=== PATIENT | female | born 1950 | race Caucasian/White ===

== ENCOUNTER → 2020-12-09 | Outpatient (CLI) | payer MEDICARE ==
[~2020-12-09] MED LIST: ABAL1.56 SQ; BONE RESTORE PO; DULO30CA44 PO; FAMO40TA4 PO; FLUT9.9S NS; IPRATROPIUM NAS; OXYC-314 PO; TELM80TA PO; omega
--- NOTE | 2020-12-09 13:14 | PDOC1 ---
INITIAL PAIN CONSULT DATE OF SERVICE: DOS: DATE: 12/09/20 TIME: 13:06 CHIEF COMPLAINT: Chief Complaint: Low back and bilateral lower extremity pain HISTORY OF PRESENT ILLNESS: 70-year-old female presents history of pain in the low back status post lumbar fusion instrumentation 2017. Patient reports her pain is getting worse now over the past 2 years or so much worse over the past 1 year patient has been taking oxycodone 4 tablets a day and reports this is not taking care of the pain very well over the past several months as well. Patient reports since the surgery she has had significant pain in the low back and radiate to the lower extremities mostly the posterior gluteus and thighs but mainly in the back itself patient rates her disability rating 0-10 10 me the worst is a 5 with him home responsibilities 7 with recreation 1 with social activity 5-6 occupation sexual behavior 0 with self-care and life support activities. Patient describes her pain is intermittent intensity but change during the day worse with walking standing changing positions and exercise any relieved by flexing forward or bending at the waist decrease in pain in her low back. Generally does not awaken her from sleep at night does not affect her bowel bladder control does affect her ability walk only for long distances greater than 30 minutes or so not use any assistive devices to ambulate. Patient not had a recent films or diagnostic studies for her lumbar spine but she is seeing her spinal surgeon tomorrow and is awaiting to see if more will be ordered. Patient is currently taking oxycodone 4 times daily, [id number] Advil, Motrin also taking Cymbalta. Patient has had physical therapy in the past and is still doing the exercises and exercises daily and despite the pain. Patient has had no recent chiropractic treatments but is currently stretching and exercise activity as noted PAST MEDICAL HISTORY: PMH: Hypertension, arthritis, gastroesophageal reflux, stage III kidney disease PREVIOUS SURGERIES: Past Surgical Hx: Spinal fusion 2018, right rotator cuff repair, tubal ligation, LASEK procedure CURRENT MEDICATIONS: Current Meds: Active Scripts Medications Dose Route/Sig Max Daily Dose Days Date Category Duloxetine Hcl 30 Mg Capsule.dr 30 Mg PO DAILY 12/09/20 Reported [ipratropium Nasal] 1 [place] ESTEBAN DAILY 12/09/20 Reported Flonase Allergy Relief (Fluticasone Propionate) 9.9 Ml [place].susp 2 Sprays NS DAILY 12/09/20 Reported Famotidine 40 Mg Tablet 40 Mg PO HS 12/09/20 Reported Tymlos (Abaloparatide) 1.56 Ml Pen.injctr 1.56 Ml SQ DAILY 12/09/20 Reported [bone restore] 1 Tab PO BID 12/09/20 Reported [omega ] 12/09/20 Reported Endocet 5-325 Tablet (Oxycodone Hcl/Acetaminophen) 1 Each Tablet 1 Tab PO QIDPRN PRN MDD 4 Tablet(s) 30 12/09/20 Reported Micardis (Telmisartan) 80 Mg Tablet 1 Tab PO DAILY 12/09/20 Reported ALLERGIES; Allergies: Coded Allergies: morphine (Verified Allergy, Intermediate, hives, 12/09/20) Sulfa (Sulfonamide Antibiotics) (Verified Adverse Reaction, Intermediate, vomiting, 12/09/20) FAMILY HISTORY: Family Hx: No major medical problems or conditions that she is aware of. SOCIAL HISTORY: Social Hx: Patient drinks about 1 glass of wine daily does not smoke not use any illegal illicit or recreational drugs patient is and lives locally in [facility] REVIEW OF SYSTEMS: ROS: Positive for those items mentioned in history of present illness, all systems are reviewed, otherwise negative ,and are complete full and well-documented on patient's chart. PHYSICAL EXAM: VS: Blood pressure is 125/78 pulse 60 respirations 16 temperature 98.2 F height is 5 feet 1 inches weight is 93 pounds PE: PHYSICAL EXAMINATION: GENERAL: The patient is awake, alert, oriented, appropriate, very pleasant demeanor HEENT: Shows normocephalic, atraumatic. Extraocular movements are intact and symmetrical. Oral cavity: Mucous membranes moist and pink. Dentition is intact. NECK: Shows anterior throat supple without palpable lymphadenopathy noted. Swallow reflex symmetrical. CHEST: Shows normal on inspection. Breath sounds are clear bilaterally, no rales rhonchi wheezes auscultated. HEART: Shows S1, S2 clear. No murmurs auscultated. ABDOMEN: Soft, nontender, nondistended, flat. No palpable organomegaly is noted. No rebound or guarding demonstrated. BACK: Shows spine grossly in the midline. Normal-appearing cervical lordotic curvature. There is slightly increased thoracic kyphosis, some minor flattening of the lumbar lordotic curvature. Well-healed extensive surgical scarring is noted in the lumbar distribution. Lumbar paraspinous muscles show symmetrical o n inspection, on palpation shows some moderate tenderness diffusely throughout the upper, middle and lower distribution of the paraspinous muscles bilaterally and also into the lower thoracic paraspinous musculature, firm and tender, but without specific trigger points, without radiation of pain. The patient has good rotational motion of the lumbar spine, both laterally as well as extension and flexion without significant difficulty. EXTREMITIES: Lower extremities show deep tendon reflexes 2+ in the patellar and tendo calcaneus tendons. Motor exam is 4 on a scale of 5 with right dorsiflexion, extension, quadriceps and hamstring flexion and 4/5 on the left. Peripheral pulses are 1+ posterior tibial. No peripheral edema is noted bilaterally. Lower extremities are warm and dry to touch, equal in color and appearance. Straight leg raise noted to be positive bilaterally approximately 35 to 40 degrees decreased with knee flexion. Gaenslen's and Kevin's maneuvers are negative bilaterally. The patient is able to stand, stand on her toes without significant difficulty or loss of balance walks with a normal- appearing gait does not appear to favor the right or left lower extremity significantly. SKIN: Shows warm and dry, good turgor. No edema. No sores, rashes or bruising throughout. IMPRESSION: Impression: 70-year-old female with long history low back pain increasing status post lumbar fusion instrumentation with radiation bilateral lower extremities in a radicular fashion, following a L5-S1 dermatomal distribution. Arthritis Hypertension Plan: Options were discussed with the patient including conservative medical management physical therapies interventional techniques. As patient is doing physical therapies and exercises on her own, as well as narcotic analgesics and anti-inflammatories, she will pursue interventional techniques. We discussed a caudal approach epidural steroid injection using descriptions as well as anatomical models to describe the procedure. Patient wait for preauthorization with her insurance provider once this is obtained will return for a caudal approach lumbar epidural steroid injection. The meantime patient will continue with stretching strength exercises daily and oral analgesics as currently. IVETH PENA MD Dec 09, 2020 13:14
== END | disposition home or self-care (01) ==
LOC: PNCL 11:30
PROVIDERS: ATTEND Anesthesiology
DX: M54.5 Low back pain (principal); M79.605 Pain in left leg; M79.604 Pain in right leg; M19.90 Unspecified osteoarthritis, unspecified site; K21.9 Gastro-esophageal reflux disease without esophagitis; I12.9 Hypertensive chronic kidney disease with stage 1 through stage 4 chronic kidney disease, or unspecified chronic kidney disease; N18.30 Chronic kidney disease, stage 3 unspecified; Z79.899 Other long term (current) drug therapy; Z98.890 Other specified postprocedural states; Z88.6 Allergy status to analgesic agent; Z88.2 Allergy status to sulfonamides
CPT/HCPCS: G0463

== ENCOUNTER → 2020-12-19 | Outpatient (CLI) | payer MEDICARE ==
[~2020-12-19] MED LIST changes: +IOHEXOL 180 MG/ML 10 ML VIAL. ONE; +methylPREDNISolone ACETATE 40 MG/ML VIAL. ONE; +methylPREDNISolone ACETATE 80 MG/ML VIAL. ONE
--- NOTE | 2020-12-19 11:30 | PDOC ---
Progress Note - Pain Clinic Date of Service: DOS: DATE: 12/19/20 TIME: 11:27 Diagnosis: Dx: Lumbar radiculopathy with lumbar degenerative disease lumbar spinal stenosis and lumbar laminectomy syndrome History or Present Illness: HPI: 70-year-old female returns for follow-up status post initial valuation preauthorization for lumbar epidural steroid injection caudal approach. Patient reports still significant pain in her low back bilateral lower extremities as previously worse on the left but present bilaterally. Patient reports no new motor or sensory deficits no new bowel or bladder incontinence still significant pain in the low back and the legs again worse on the left rated a 6 on scale 10 is worse over the past week 5 on average to its least is a 5 today patient reports is aching and sharp on and off in intensity worse with walking standing changing positions better with sitting or laying down generally does not awaken her from sleep at night most nights. Patient reports no new motor or sensory deficits no new bowel or bladder incontinence or other complaints. Physical Exam: VS: Blood pressure is 116/71 pulse 88 respirations 16 temperature 97.9 F height is 5 foot 1 his weight is 92 pounds PE: PHYSICAL EXAMINATION: GENERAL: The patient is awake, alert, oriented, appropriate, very pleasant demeanor HEENT: Shows normocephalic, atraumatic. Extraocular movements are intact and symmetrical. Oral cavity: Mucous membranes moist and pink. Dentition is intact. NECK: Shows anterior throat supple without palpable lymphadenopathy noted. Swallow reflex symmetrical. CHEST: Shows normal on inspection. Breath sounds are clear bilaterally. HEART: Shows S1, S2 clear. No murmurs auscultated. ABDOMEN: Soft, nontender, nondistended. No palpable organomegaly is noted. No rebound or guarding demonstrated. BACK: Shows spine grossly in the midline. Normal-appearing cervical lordotic curvature. There is slightly increased thoracic kyphosis, some minor flattening of the lumbar lordotic curvature. Well-healed surgical scar in the midline in the lumbar distribution. Lumbar paraspinous muscles show symmetrical on inspection, on palpation shows some moderate tenderness diffusely throughout the upper, middle and lower distribution of the paraspinous muscles without specific trigger points, without radiation of pain. The patient has good rotational motion of the lumbar spine, both laterally as well as extension and flexion without significant difficulty. EXTREMITIES: Lower extremities show deep tendon reflexes 2+ in the patellar and tendo calcaneus tendons. Motor exam is 4 on a scale of 5 with right dorsiflexion, extension, quadriceps and hamstring flexion and 4/5 on the left. Peripheral pulses are 1+ posterior tibial. No peripheral edema is noted bilaterally. Lower extremities are warm and dry to touch, equal in color and appearance. SKIN: Shows warm and dry, good turgor. No edema. No sores, rashes or bruising throughout. Procedure: Procedure: Options were discussed with the patient. Patient chart was reviewed as her current medication regimen updated current review of systems updated today as well. We will proceed with a caudal approach epidural steroid injection today with fluoroscopic guidance. Risks were discussed including but not limited to: Bleeding, infection, possibility of epidural hematoma and subsequent neurolog ical compromise, dural puncture, headaches, spinal cord and/or nerve damage, side effects of steroid medication, and poor results regarding pain control. Patient understands and wished to proceed. Patient will return to clinic in approximate 2 weeks for follow-up, was counseled return appointment, activity level, and side effects beware. Medication Injected: Med Injected: Procedure is lumbar epidural steroid injection under local anesthetic using sterile prep and drape at the caudal level using C-arm fluoroscopic guidance in both AP and lateral views medications injected is 120 mg Depo-Medrol + 10 mL preservative-free normal saline and 2 mL contrast- condition at discharge is stable patient tolerated procedure well had no complications. Condition at Discharge: Condition at Discharge: Condition at discharge stable, patient already procedure well and had no complications. IVETH PENA MD December 19, 2020 11:30
--- NOTE | 2020-12-19 11:30 | PDOC4 ---
PROCEDURE Procedure Patient was consented for caudal approach epidural steroid injection. Risks were discussed including but not limited to: Bleeding, infection, possibility of epidural hematoma and subsequent neurological compromise, dural puncture, headaches, spinal cord and/or nerve damage, side effects of steroid medication, and poor results regarding pain control. Patient understands and wished to proceed. Procedure is lumbar epidural steroid injection under local anesthetic using sterile prep and drape at the caudal level using C-arm fluoroscopic guidance in both AP and lateral views medications injected is 120 mg Depo-Medrol + 10 mL preservative-free normal saline and 2 mL contrast- condition at discharge is stable patient tolerated procedure well had no complications. IVETH PENA MD December 19, 2020 11:30
== END | disposition home or self-care (01) ==
LOC: PNCL 10:20
PROVIDERS: ATTEND Anesthesiology
DX: M51.16 Intervertebral disc disorders with radiculopathy, lumbar region (principal); M48.061 Spinal stenosis, lumbar region without neurogenic claudication; M96.1 Postlaminectomy syndrome, not elsewhere classified; Z79.899 Other long term (current) drug therapy; Z88.2 Allergy status to sulfonamides; Z88.6 Allergy status to analgesic agent
CPT/HCPCS: 62323; J1030; J1040; Q9965

== ENCOUNTER → 2021-01-02 | Outpatient (CLI) | payer MEDICARE ==
[~2021-01-02] MED LIST changes: -IOHEXOL 180 MG/ML 10 ML VIAL. ONE; -methylPREDNISolone ACETATE 40 MG/ML VIAL. ONE; -methylPREDNISolone ACETATE 80 MG/ML VIAL. ONE
--- NOTE | 2021-01-02 11:18 | PDOC ---
Progress Note - Pain Clinic Date of Service: DOS: DATE: 01/02/21 TIME: 11:14 Diagnosis: Dx: Lumbar degenerative disc disease with lumbar spinal stenosis lumbar postlaminectomy syndrome and lumbar and lumbosacral spondylosis History or Present Illness: HPI: 70-year-old female returns follow-up status post caudal epidural steroid injection x1. Patient reports only about 1 day decrease pain by about 50% but the pain returned fairly quickly in the low back itself patient reports is no longer radiating to the lower extremities but is in the low back bilaterally worse with walking standing changing positions better with laying down generally does not awaken from sleep at night when she is up on her feet moving walking especially with the extension of the lumbar spine the pain is becoming much more noticeable patient reports is aching and dull on and off in intensity but can be tingling and burning and shooting across the low back sometimes unbearable. Patient reports she still taking 4 oxycodone 5 mg/day which is becoming less and less effective patient reports no new motor or sensory deficits rates her pain is a 6 on scale 10 is worse over the past week 5 on average to its least is a 65 today. Patient reports no new bowel or bladder incontinence or other complaints. Physical Exam: VS: Blood pressure is 120/72 pulse 57 respirations 18.3 F height is 22 inches 93 pounds. PE: PHYSICAL EXAMINATION: GENERAL: The patient is awake, alert, oriented, appropriate, very pleasant nohemy anor HEENT: Shows normocephalic, atraumatic. Extraocular movements are intact and symmetrical. Oral cavity: Mucous membranes moist and pink. Dentition is intact. NECK: Shows anterior throat supple without palpable lymphadenopathy noted. Swallow reflex symmetrical. CHEST: Shows normal on inspection. Breath sounds are clear bilaterally. HEART: Shows S1, S2 clear. No murmurs auscultated. ABDOMEN: Soft, nontender, nondistended. No palpable organomegaly is noted. No rebound or guarding demonstrated. BACK: Shows spine grossly in the midline. Normal-appearing cervical lordotic curvature. There is slightly increased thoracic kyphosis, some minor flattening of the lumbar lordotic curvature. Well-healed midline surgical scarring again noted. Lumbar paraspinous muscles show symmetrical on inspection, on palpation shows some moderate tenderness diffusely throughout the upper, middle and lower distribution of the paraspinous muscles without specific trigger points, without radiation of pain. The patient has good rotational motion of the lumbar spine, with significant tenderness with extension and axial loading of the lumbar spine with pain right and left in the lumbar distribution but without radiation to lower extremities, patient shows moderate pain with right and left lateral rotation greater than 10 degrees as well. No tenderness over the spinous processes, sacrum or sacroiliac regions. EXTREMITIES: Lower extremities show deep tendon reflexes 2+ in the patellar and tendo calcaneus tendons. Motor exam is 4 on a scale of 5 with right dorsiflexion, extension, quadriceps and hamstring flexion and 4/5 on the left. Peripheral pulses are 1+ posterior tibial. No peripheral edema is noted bilaterally. Lower extremities are warm and dry to touch, equal in color and appearance. SKIN: Shows warm and dry, good turgor. No edema. No sores, rashes or bruising throughout. Procedure: Procedure: Options were discussed with the patient. Patient's old chart was reviewed as her current medication regimen updated current review of systems updated today as well. We will preauthorize patient for bilateral lumbar facet medial branch blocks with fluoroscopic guidance. Once obtained patient will return to clinic we will plan on bilateral L3-4 L4-5 and L5-S1 medial branch facet blocks with fluoroscopic guidance. In the meantime patient will continue with oral analgesics as well as anti-inflammatories stretching and strength exercises as currently. Medication Injected: Med Injected: None Condition at Discharge: Condition at Discharge: Condition at discharge is stable. IVETH PENA MD January 02, 2021 11:18
== END | disposition home or self-care (01) ==
LOC: PNCL 09:57
PROVIDERS: ATTEND Anesthesiology
DX: M51.36 Other intervertebral disc degeneration, lumbar region (principal); M48.061 Spinal stenosis, lumbar region without neurogenic claudication; M96.1 Postlaminectomy syndrome, not elsewhere classified; M47.817 Spondylosis without myelopathy or radiculopathy, lumbosacral region; Z79.899 Other long term (current) drug therapy; Z88.2 Allergy status to sulfonamides; Z88.6 Allergy status to analgesic agent
CPT/HCPCS: 99212; G0463

== ENCOUNTER → 2021-01-27 | Outpatient (CLI) | payer MEDICARE ==
[~2021-01-27] MED LIST changes: +BUPIVACAINE MPF 0.25% 10 ML VIAL. ONE; +IOHEXOL 180 MG/ML 10 ML VIAL. ONE; +methylPREDNISolone ACETATE 40 MG/ML VIAL. ONE; +methylPREDNISolone ACETATE 80 MG/ML VIAL. ONE
--- NOTE | 2021-01-27 09:07 | PDOC ---
Progress Note - Pain Clinic Date of Service: DOS: DATE: 01/27/21 TIME: 09:03 Diagnosis: Dx: Lumbar degenerative disease with lumbar spinal stenosis post lumbar radicular syndrome and lumbar and lumbosacral spondylosis History or Present Illness: HPI: 70-year-old female returns for follow-up status post evaluation and caudal epidural steroid injection December 19 we had preauthorize her for bilateral facet injections medial branch blocks today and she is obtained approval we will proceed with bilateral facet medial branch blocks today as well. Patient has significant history of extensive instrumentation fusion in the lumbar spine with significant low back pain not radiate to the lower extremities. Patient report is slightly worse on the left than the right but present bilaterally worse with walking standing changing positions still taking pain medication which gets her through the day but is not working as well as it had in the past. Patient reports her pain is a 6 on scale 10 is worse over the past week 5 on average 3 its least and is a 5 today patient reports aching and dull is constant without the pain medication still wakes her from sleep frequently does not cause any new motor or sensory deficits no bowel or bladder incontinence. Patient describes pain as aching and dull constant in the back and again cramping stabbing in the back as well. Physical Exam: VS: Blood pressure is 105/54 pulse 66 respirations are 18 temperature 97.2 F height 5 foot 1 inch weight is 92 pounds PE: PHYSICAL EXAMINATION: GENERAL: The patient is awake, alert, oriented, appropriate, very pleasant demeanor HEENT: Shows normocephalic, atraumatic. Extraocular movements are intact and symmetrical. Oral cavity: Mucous membranes moist and pink. Dentition is intact. NECK: Shows anterior throat supple without palpable lymphadenopathy noted. Swallow reflex symmetrical. CHEST: Shows normal on inspection. Breath sounds are clear bilaterally, no rales or rhonchi. HEART: Shows S1, S2 clear. No murmurs auscultated. ABDOMEN: Soft, nontender, nondistended, flat. BACK: Shows spine grossly in the midline. Normal-appearing cervical lordotic curvature. There is slightly increased thoracic kyphosis, some minor flattening of the lumbar lordotic curvature. Well-healed midline surgical scar is again noted. Lumbar paraspinous muscles show symmetrical on inspection, on palpation shows some moderate tenderness diffusely throughout the upper, middle and lower distribution of the paraspinous muscles without specific trigger points, without radiation of pain. The patient has good rotational motion of the lumbar spine, both laterally as well as extension and flexion without significant difficulty. EXTREMITIES: Lower extremities show deep tendon reflexes 2+ in the patellar and tendo calcaneus tendons. Motor exam is 4 on a scale of 5 with right dorsiflexion, extension, quadriceps and hamstring flexion and 4/5 on the left. Peripheral pulses are 1+ posterior tibial. No peripheral edema is noted bilaterally. Lower extremities are warm and dry. SKIN: Shows warm and dry, good turgor. No edema. No sores, rashes or bruising throughout. Procedure: Procedure: Options were discussed with the patient. Patient chart was reviewed as her current medication regimen updated current review of systems updated today as well. We will proceed with bilateral lumbar L3-4, L4-5, L5-S1 medial branch blocks with fluoroscopic guidance. Risks were discussed including but not limited to: Bleeding, infection, possibility of epidural hematoma and subsequent neurological compromise, dural puncture, headaches, spinal cord and/or nerve dam age, side effects of steroid medication, and poor results regarding pain control. Patient understands and wished to proceed. Patient will return to the clinic in approximate 2 weeks for follow-up, was counseled as return appointment active level and side effects to be aware of. Medication Injected: Med Injected: Under sterile prep and drape using C-arm fluoroscopic guidance AP and lateral and oblique views, bilateral L3-4, L4-5 and L5-S1 facet joint injections were performed, using quinke needles with stylette's x6,, medications injected: 120 mg Depo-Medrol +6 cc 0.25% bupivacaine +3 cc contrast. Condition at discharge stable patient tolerated the procedure well and no complications. Condition at Discharge: Condition at Discharge: Condition at discharge stable, patient alert procedure well and had no complications. IVETH PENA MD Jan 27, 2021 09:07
--- NOTE | 2021-01-27 09:08 | PDOC4 ---
PROCEDURE Procedure Patient was consented for bilateral L3-4, L4-5, L5-S1 medial branch facet blocks with fluoroscopic guidance. Risks were discussed including but not limited to: Bleeding, infection, possibility of epidural hematoma and subsequent neurological compromise, dural puncture, headaches, spinal cord and/or nerve damage, side effects of steroid medication, and poor results regarding pain control. Patient understands and wished to proceed. Under sterile prep and drape using C-arm fluoroscopic guidance AP and lateral and oblique views, bilateral L3-4, L4-5 and L5-S1 facet joint injections were performed, using quinke needles with stylette's x6,, medications injected: 120 mg Depo-Medrol +6 cc 0.25% bupivacaine +3 cc contrast. Condition at discharge stable patient tolerated the procedure well and no complications. IVETH PENA MD Jan 27, 2021 09:08
== END | disposition home or self-care (01) ==
LOC: PNCL 08:23
PROVIDERS: ATTEND Anesthesiology
DX: M51.16 Intervertebral disc disorders with radiculopathy, lumbar region (principal); M47.27 Other spondylosis with radiculopathy, lumbosacral region; M48.061 Spinal stenosis, lumbar region without neurogenic claudication; M54.5 Low back pain; Z88.2 Allergy status to sulfonamides; Z88.6 Allergy status to analgesic agent; Z79.899 Other long term (current) drug therapy
CPT/HCPCS: 64493; 64494; 64495; J1030; J1040; J3490; Q9965

== ENCOUNTER → 2021-02-10 | Outpatient (CLI) | payer MEDICARE ==
[~2021-02-10] MED LIST changes: -BUPIVACAINE MPF 0.25% 10 ML VIAL. ONE; -IOHEXOL 180 MG/ML 10 ML VIAL. ONE; -methylPREDNISolone ACETATE 40 MG/ML VIAL. ONE; -methylPREDNISolone ACETATE 80 MG/ML VIAL. ONE
--- NOTE | 2021-02-10 08:55 | PDOC ---
Progress Note - Pain Clinic Date of Service: DOS: DATE: 02/10/21 TIME: 08:51 Diagnosis: Dx: Lumbar radiculopathy with lumbar degenerative disc disease lumbar spinal stenosis post lumbar laminectomy syndrome and lumbar and lumbosacral spondylosis History or Present Illness: HPI: 70-year-old female returns follow-up status post caudal epidural steroid injection and bilateral lumbar facet medial branch blocks L3-4, L4-5, L5-S1. Patient reports no significant decrease in pain in any of the procedures thus far still significant pain in the low back and bilateral lower extremities in a radicular fashion patient reports is a 6 on scale 10 is worse over the past week 5 on average 3 its least is a 5 today described as constant aching patient reports not excruciating but significant enough to impede her daily activities significantly. Patient reports is better with sitting down generally is not awaken her from sleep at night but she is limiting her activity secondary to the pain fairly significantly patient scribes as aching and constant in the low back radiating shooting stabbing cramping and burning patient reports no new motor or sensory deficits no incontinence or other complaints. Physical Exam: VS: Blood pressure is 111/61 pulse 64 respirations 18 temperature 98.1 F height is 5 foot 1 his weight is 92 pounds PE: PHYSICAL EXAMINATION: GENERAL: The patient is awake, alert, oriented, appropriate, very pleasant in demeanor HEENT: Shows normocephalic, atraumatic. Extraocular movements are intact and symmetrical. NECK: Shows anterior throat supple without palpable lymphadenopathy noted. Swallow reflex symmetrical. CHEST: Shows normal on inspection. Breath sounds clear without rales rhonchi or wheezes HEART: Shows S1, S2 clear. No murmurs auscultated. ABDOMEN: Soft, nontender, nondistended. No palpable organomegaly is noted. No rebound or guarding demonstrated. BACK: Shows spine grossly in the midline. Normal-appearing cervical lordotic curvature. There is slightly increased thoracic kyphosis, some minor flattening of the lumbar lordotic curvature. Extensive well-healed surgical scarring noted. Lumbar paraspinous muscles show symmetrical on inspection, on palpation shows some moderate tenderness diffusely throughout the upper, middle and lower distribution of the paraspinous muscles without specific trigger points, without radiation of pain. The patient has good rotational motion of the lumbar spine, both laterally as well as extension and flexion with moderate pain with right and left lateral rotation as well as extension and somewhat forward flexion. No tenderness over the spinous processes, sacrum or sacroiliac regions. EXTREMITIES: Lower extremities show deep tendon reflexes 2+ in the patellar and tendo calcaneus tendons. Motor exam is 4 on a scale of 5 with right dorsiflexion, extension, quadriceps and hamstring flexion and 4/5 on the left. Peripheral pulses are 1+ posterior tibial. No peripheral edema is noted bilaterally. Lower extremities are warm and dry. SKIN: Shows warm and dry, good turgor. No edema. No sores, rashes or bruising throughout. Procedure: Procedure: Options were discussed with the patient. Patient's old chart was viewed as her current medication regimen updated current review of systems updated today as well. We discussed further options with the patient as he has had no significant results with procedures to date and we had discussed a spinal cord stimulator trial with the patient a few weeks ago. Patient is done some research on her own and would like to proceed with this. Again patient with postlaminectomy syndrome significant persistent lumbar radiculopathy without significant provement with epidural steroid injection as well as medial branch facet injections despite continued physical therapy stretching strength exercises and maintaining activity as much as she can tolerate. Patient was encouraged to continue stretching strength exercise as well as oral analgesics and narcotic medications as currently taking. We will await preauthorization with patient's insurance provider for spinal cord stimulator trial placement. Medication Injected: Med Injected: None Condition at Discharge: Condition at Discharge: Condition at discharge is stable. IVETH PENA MD Feb 10, 2021 08:55
== END | disposition home or self-care (01) ==
LOC: PNCL 08:01
PROVIDERS: ATTEND Anesthesiology
DX: M51.16 Intervertebral disc disorders with radiculopathy, lumbar region (principal); M48.061 Spinal stenosis, lumbar region without neurogenic claudication; M96.1 Postlaminectomy syndrome, not elsewhere classified; M47.27 Other spondylosis with radiculopathy, lumbosacral region; Z79.899 Other long term (current) drug therapy; Z88.2 Allergy status to sulfonamides; Z88.6 Allergy status to analgesic agent
CPT/HCPCS: G0463

== ENCOUNTER → 2021-03-11 | Outpatient (CLI) | payer MEDICARE ==
[~2021-03-11] MED LIST changes: +LIDOCAINE 1% PF 2 ML VIAL. ONE
--- NOTE | 2021-03-11 15:18 | PDOC ---
Progress Note - Pain Clinic Date of Service: DOS: DATE: 03/11/21 TIME: 15:13 Diagnosis: Dx: Lumbar radiculopathy with lumbar degenerative disc disease lumbar spinal stenosis lumbar postlaminectomy syndrome History or Present Illness: HPI: 70-year-old female returns for follow-up status post bilateral lumbar facet medial branch blocks caudal epidural steroid injection without significant long- term improvement. We discussed a spinal cord stimulator she is going through preliminary qualification with psychological evaluation as well as preauthorization and would like to proceed today. We discussed this in great detail today regarding the procedure as well as the anticipated effects of the spinal cord stimulator over the next week during the trial period. Patient reports pain still significant low back bilateral lower extremities posterior gluteus posterior thighs somewhat worse on the right than the left but bilateral in the low back and bilateral lower extremities. Patient reports is aching and sharp can be constant with walking standing better with sitting or laying down generally does not awaken her from sleep at night. Patient reports is a 6-7 is worse over the past week 5 on average to its least is a 5 today. Patient reports no new motor or sensory deficits no bowel or bladder incontinence. Physical Exam: VS: Blood pressure is 116/77 pulse 80 respirations 18 temperature is 97.8 F height 5 foot, 1 inch, weight is 94 pounds PE: PHYSICAL EXAMINATION: GENERAL: The patient is awake, alert, oriented, appropriate, very pleasant in demeanor, patient accompanied by her daughter HEENT: Shows normocephalic, atraumatic. Extraocular movements are intact and symmetrical. Oral cavity: Mucous membranes moist and pink. NECK: Shows anterior throat supple without palpable lymphadenopathy noted. Swallow reflex symmetrical. CHEST: Shows normal on inspection. Breath sounds are clear bilaterally, no rales rhonchi or wheezes auscultated. HEART: Shows S1, S2 clear. No murmurs auscultated. ABDOMEN: Soft, nontender, nondistended. No palpable organomegaly is noted. BACK: Shows spine grossly in the midline. Normal-appearing cervical lordotic curvature. There is slightly increased thoracic kyphosis, some minor flattening of the lumbar lordotic curvature. Well-healed midline extensive scar noted. Lumbar paraspinous muscles show symmetrical on inspection, on palpation shows some moderate tenderness diffusely throughout the upper, middle and lower distribution of the paraspinous muscles without specific trigger points, without radiation of pain. The patient has good rotational motion of the lumbar spine. No tenderness over the spinous processes, sacrum or sacroiliac regions. EXTREMITIES: Lower extremities show deep tendon reflexes 2+ in the patellar and tendo calcaneus tendons. Motor exam is 5 on a scale of 5 with right dorsiflexion, extension, quadriceps and hamstring flexion and 5/5 on the left. Peripheral pulses are 1+ posterior tibial. No peripheral edema is noted bilaterally. Lower extremities are warm and dry to touch, equal in color and appearance. SKIN: Shows warm and dry, good turgor. No edema. No sores, rashes or bruising throughout. Procedure: Procedure: Options were discussed with the patient. Patient chart reviews her current medication regimen updated current review of systems updated today as well. We will proceed with spinal cord stimulator temporary leads placement today with fluoroscopic guidance. Risks were discussed including but not limited to: Bleeding, infection, possibility of epidural hematoma and subsequent neurological compromise, dural puncture, headaches, spinal cord and/or nerve damage, and poor results regarding pain control. Patient understands and wished to proceed. Patient will return to the clinic in approximate 1 week for removal of the spinal cord stimulator leads and reassessment of patient's condition at that time. Medication Injected: Med Injected: Under sterile prep and drape patient in prone position using C-arm fluoroscopic guidance patient's lumbar spine was identified and vertebral levels were counted did put external marker on the T8 level. This time the lumbar spine was revisualized and using 1% lidocaine, the area over the L3 4 level was anesthetized and then using a 14-gauge Xatoritead needle with stylette was entered to the epidural space at the L1 -2 level using a paramedian approach to the right with preservative-free normal saline ejpk-ac-exrzymzxav technique aspiration was noted to be negative and using direct fluoroscopy visualization spinal cord stimulator lead was then advanced without significant resistance in the midline and confirmed posterior with both AP and lateral views, and advanced to the superior endplate of the T8 vertebral level superimposed with the superior spinal cord stimulator electrode lead. Fluoroscopy was used in a later al view to verify posterior placement in the epidural space at this point as well. At this time a second lead was then introduced in similar fashion at the L 3-4 level and inserted and in the epidural space at the L1-2 level once again with preservative-free normal saline vwnf-ma-teokijwlui technique. Aspiration was again noted to be negative and using direct visualization with fluoroscopy second lumbar spinal cord stimulator lead was advanced without significant resistance in the midline with the superior electrode superimposed over the superior endplate of the T9 vertebral body. Lateral visualization was again confirmed with placement of the stimulator in the posterior epidural space. At this time the needles and stylette were removed with intermittent fluoroscopic visualization maintaining that the leads had not moved during this process and this was confirmed. This time 1% lidocaine was used to anesthetize the skin next to the insertion sites of the stimulator wires and using a 2-0 silk were then sutured in place. Mastisol and Tegaderm was then applied as well as reinforcing tape and gauze. Patient was transferred to the recovery area under his own power walking without difficulty and had no immediate complications from the procedure. Stimulation was then carried out with [facility] representatives. Patient will return to the clinic in approximately 1 week for removal of the te mporary leads and reassessment of the patient's pain level. Condition at Discharge: Condition at Discharge: Condition at discharge is stable, patient already the procedure well and had no complications. IVETH PENA MD Mar 11, 2021 15:17
--- NOTE | 2021-03-11 15:18 | PDOC4 ---
Procedure Note: ICD 10 Code: ICD 10 Code: M 54.16 M 96.1 M 47.816 M 51.36 Procedure Note: Patient was consented for spinal cord stimulator temporary leads placement x2 with fluoroscopic guidance. Risks were discussed including but not limited to: Bleeding, infection, possibility of epidural hematoma and subsequent n eurological compromise, dural puncture, headaches, spinal cord and/or nerve damage, and poor results regarding pain control. Patient understands and wished to proceed. Under sterile prep and drape patient in prone position using C-arm fluoroscopic guidance patient's lumbar spine was identified and vertebral levels were counted did put external marker on the T8 level. This time the lumbar spine was revisualized and using 1% lidocaine, the area over the L3 4 level was anesthetized and then using a 14-gauge [employer] needle with stylette was entered to the epidural space at the L1 -2 level using a paramedian approach to the right with preservative-free normal saline hjgw-cw-jclskldbex technique aspiration was noted to be negative and using direct fluoroscopy visualization spinal cord stimulator lead was then advanced without significant resistance in the midline and confirmed posterior with both AP and lateral views, and advanced to the superior endplate of the T8 vertebral level superimposed with the superior spinal cord stimulator electrode lead. Fluoroscopy was used in a lateral view to verify posterior placement in the epidural space at this point as well. At this time a second lead was then introduced in similar fashion at the L 3-4 level and inserted and in the epidural space at the L1-2 level once again with preservative-free normal saline uose-ar-kjmvegvqet technique. Aspiration was again noted to be negative and using direct visualization with fluoroscopy second lumbar spinal cord stimulator lead was advanced without significant resistance in the midline with the superior electrode superimposed over the superior endplate of the T9 vertebral body. Lateral visualization was again confirmed with placement of the stimulator in the posterior epidural space. At this time the needles and stylette were removed with intermittent fluoroscopic visualization maintaining that the leads had not moved during this process and this was confirmed. This time 1% lidocaine was used to anesthetize the skin next to the insertion sites of the stimulator wires and using a 2-0 silk were then sutured in place. Mastisol and Tegaderm was then applied as well as reinforcing tape and gauze. Patient was transferred to the recovery area under his own power walking without difficulty and had no immediate complications from the procedure. Stimulation was then carried out with [employer] representatives. Patient will return to the clinic in approximately 1 week for removal of the temporary leads and reassessment of the patient's pain level. IVETH PENA MD Mar 11, 2021 15:18
== END | disposition home or self-care (01) ==
LOC: PNCL 13:02
PROVIDERS: ATTEND Anesthesiology
DX: M51.16 Intervertebral disc disorders with radiculopathy, lumbar region (principal); M48.061 Spinal stenosis, lumbar region without neurogenic claudication; M96.1 Postlaminectomy syndrome, not elsewhere classified; M47.816 Spondylosis without myelopathy or radiculopathy, lumbar region; Z79.899 Other long term (current) drug therapy; Z88.2 Allergy status to sulfonamides; Z88.6 Allergy status to analgesic agent
CPT/HCPCS: 63650; C1897; J3490

== ENCOUNTER → 2021-03-18 | Outpatient (CLI) | payer MEDICARE ==
[~2021-03-18] MED LIST changes: -LIDOCAINE 1% PF 2 ML VIAL. ONE
--- NOTE | 2021-03-18 15:30 | PDOC ---
Progress Note - Pain Clinic Date of Service: DOS: DATE: 03/18/21 TIME: 15:26 Diagnosis: Dx: Lumbar radiculopathy lumbar degenerative disease lumbar spinal stenosis lumbar postlaminectomy syndrome and lumbar spondylosis History or Present Illness: HPI: 70-year-old female returns for follow-up status post spinal cord stimulator temporary leads placement times two 1 week ago. Patient returns reporting about 70% improvement with the stimulation and is very pleased with her progress she was increasing her activity with greater ease and comfort doing daily activities travel with greater ease sleeping better at night walking much more comfortably patient reports still some aching in the legs with walking but otherwise the pain is significantly reduced. Patient reports her pain is a 5 on a scale of 10 is worse over the past week 3 on average to its least and is a 2 today patient describes the chest aching in the legs with walking only otherwise the pain is essentially gone. Patient reports sleeping better at night no new motor or sensory deficits no new bowel or bladder incontinence complaints and is quite pleased with her progress. Physical Exam: VS: Blood pressure is 118/70 pulse 68 respirations 18 temperature 98.3 F PE: PHYSICAL EXAMINATION: GENERAL: The patient is awake, alert, oriented, appropriate, very pleasant in demeanor HEENT: Shows normocephalic, atraumatic. NECK: Shows anterior throat supple without palpable lymphadenopathy noted. BACK: Shows spine grossly in the midline. Normal-appearing cervical lordotic curvature. There is slightly increased thoracic kyphosis, some minor flattening of the lumbar lordotic curvature. Lumbar paraspinous muscles show symmetrical on inspection, on palpation shows some moderate tenderness diffusely throughout the upper, middle and lower distribution of the paraspinous muscles, but without specific trigger points, without radiation of pain. The patient has good rotational motion of the lumbar spine, both laterally as well as extension and flexion without significant difficulty. No tenderness over the spinous processes, sacrum or sacroiliac regions. Bandages were taken down and revealed spinal cord stimulator temporary leads with sutures intact no erythema no drainage no tenderness using sterile prep and drape sutures were removed and leads were removed with tips intact x2. Area of insertion was sterilely cleaned and bandaged. Procedure: Procedure: Options were discussed with patient. Patient's old chart reviews her current medication regimen updated current review of systems updated today as well. The spinal cord stimulator leads were removed as stated above. Patient is interested in pursuing a permanent system we will make these arrangements. Medication Injected: Med Injected: None Condition at Discharge: Condition at Discharge: Condition at discharge is stable. IVETH PENA MD Mar 18, 2021 15:30
== END ==
LOC: PNCL 14:35
PROVIDERS: ATTEND Anesthesiology
DX: M47.26 Other spondylosis with radiculopathy, lumbar region (principal); M48.061 Spinal stenosis, lumbar region without neurogenic claudication
CPT/HCPCS: 99212; G0463